=== PATIENT | female | born 1960 | race Caucasian/White ===

== ENCOUNTER 2019-08-25 07:34 | Emergency (ER) | payer SELFPAY ==
[~2019-08-25] VITALS: Ht 172.7 cm; Wt 95.3 kg
[2019-08-25 09:04] VITALS: BP 155/80
== END 2019-08-25 09:52 | disposition home or self-care (01) ==
LOC: ER 07:34 → EDBD 07:34 → ER 09:52
DX: S16.1XXA Strain of muscle, fascia and tendon at neck level, initial encounter (principal); S39.012A Strain of muscle, fascia and tendon of lower back, initial encounter; I10 Essential (primary) hypertension; V43.62XA Car passenger injured in collision with other type car in traffic accident, initial encounter; Y93.89 Activity, other specified; Y99.8 Other external cause status; Y92.410 Unspecified street and highway as the place of occurrence of the external cause